=== PATIENT | male | born 1955 | race Caucasian/White ===

== ENCOUNTER 2020-02-20 10:01 | Emergency (ER) | payer BC ==
[~2020-02-20] VITALS: Ht 185.4 cm; Wt 122.0 kg
--- NOTE | 2020-02-20 12:53 | NUR ---
PT MOVED TO ROOM 33 POST X RAY READ FOR IV AND IV ABX. PT PLACED ON O2 AND NIBP MONITORING AND TECH AT BEDSIDE TO START IV.
[2020-02-20] MEDS ORDERED: CEFTRIAXONE PMX 1GM/50ML 50 ML IVPB ONE (13:00)
[2020-02-20] MEDS ORDERED: AZITHROMYCIN 500 MG in SODIUM CHLORIDE 0.9% 250 ML IV ONE (13:00)
[2020-02-20] MEDS ORDERED: SODIUM CHLORIDE FLUSH 10ML SYR IVF ONE (13:00)
[2020-02-20] MEDS ORDERED: CEFTRIAXONE PMX 1GM/50ML 50 ML ONE (13:16)
[2020-02-20 13:18] LABS: BASOPHILS % (AUTO) 1 % (0-1); EOSINOPHILS % (AUTO) 1 % (1-7); LYMPHOCYTES % (AUTO) 17 % (22-44); MEAN CORPUSCULAR HEMOGLOBIN 31.3 pg (27.5-34.5); MEAN CORPUSCULAR HGB CONC 34.4 g/dL (33.2-36.2); MEAN PLATELET VOLUME 7.5 fL (7.4-10.4); MONOCYTES % (AUTO) 10 % (2-9); NEUTROPHILS % (AUTO) 72 % (42-75); PLATELET COUNT 222 x10^3/uL (130-400); RED BLOOD COUNT 4.43 x10^6/uL (4.38-5.82); RED CELL DISTRIBUTION WIDTH 12.9 % (9.4-14.8)
[2020-02-20 13:28] LABS: MD NO
[2020-02-20 13:29] LABS: ALBUMIN 3.6 g/dL (3.4-5.0); ANION GAP 6 mmol/L (5-15); CALCIUM 8.5 mg/dL (8.5-10.1); CHLORIDE 106 mmol/L (98-107); CREATININE 1.29 mg/dL (0.7-1.3)
--- NOTE | 2020-02-20 13:41 | NUR ---
TASK RN: PT WATCHING TV. [place]. VINOD.
--- NOTE | 2020-02-20 14:07 | NUR ---
ABX RUNNING AT THIS TIME. PT UPDATED ON STATUS OF . ALL QUESTIONS ANSWERED.
[2020-02-20 15:04] VITALS: BP 112/71
== END 2020-02-20 15:10 | disposition home or self-care (01) ==
LOC: ED 11:26
DX: U07.1 COVID-19 (principal); J12.9 Viral pneumonia, unspecified
CPT/HCPCS: 36415; 71046; 80048; 82040; 83605; 85025; 87040; 96365; 96366; 96367; 99284; J0456; J0696; J7050

== ENCOUNTER 2020-02-22 11:24 | Inpatient (IN) | payer BC ==
[~2020-02-22] VITALS: Ht 185.4 cm; Wt 125.0 kg
--- NOTE | 2020-02-22 11:55 | NUR ---
PT PRESENTS TO ED WITH C/O INCREASED COUGH, SOB AND FATIGUE. PT DENIES CP. PT STATES TOTAL SYMPTOM DURATION IS NOW 15 DAYS, PT IS KNOWN COVID POSITIVE. PT A&O, RESPS EVEN AND UNLABORED, ABLE TO SPEAK IN FULL SENTENCES WITHOUT DIFFICULTY. ALL MONITORS IN PLACE, PT IS SINUS TACH RATE 90-100'S WITH NO ECTOPY NOTED. CALL LIGHT IN REACH. AWAITING ORDERS AT THIS TIME.
--- NOTE | 2020-02-22 11:58 | NUR ---
PT STATES HE TOOK TYLENOL JUST PRIOR TO ED ARRIVAL. ERICH VICTOR.
[2020-02-22] MEDS ORDERED: AZITHROMYCIN 500 MG in SODIUM CHLORIDE 0.9% 250 ML IV ONE (13:00)
[2020-02-22] MEDS ORDERED: CEFTRIAXONE PMX 1GM/50ML 50 ML IVPB ONE (13:00)
--- NOTE | 2020-02-22 13:00 | NUR ---
PIV placed by task BANDAR Osman pt tolerated well. awaiting labs/cxr results and dispo.
[2020-02-22 13:34] LABS: ALBUMIN 3.2 g/dL (3.4-5.0); ANION GAP 7 mmol/L (5-15); CALCIUM 8.3 mg/dL (8.5-10.1); CHLORIDE 104 mmol/L (98-107)
[2020-02-22 13:38] LABS: ALANINE AMINOTRANSFERASE 31 U/L (12-78); ALKALINE PHOSPHATASE 37 U/L (45-117); BILIRUBIN,TOTAL 0.7 mg/dL (0.2-1.0); CREATININE 1.28 mg/dL (0.7-1.3); TOTAL PROTEIN 7.5 g/dL (6.4-8.2)
--- NOTE | 2020-02-22 13:41 | NUR ---
this RN notified DESIREE Quispe pt is meeting several sirs criteria including fever, tachycardia, and tachypnea. EDPA to order blood cx x 2 and lactic acid sepsis. this RN holding IV abx until blood cx drawn x 2.
[2020-02-22] MEDS ORDERED: OMEP-110 PO (13:47)
[2020-02-22] MEDS ORDERED: SUPER B COMPLEX PO (13:47)
[2020-02-22] MEDS ORDERED: SERT50TA28 PO (13:47)
[2020-02-22] MEDS ORDERED: LEVO150T5 PO (13:47)
[2020-02-22] MEDS ORDERED: FAMO40TA61 PO (13:47)
[2020-02-22] MEDS ORDERED: CHOL10003 PO (13:47)
[2020-02-22 13:58] LABS: BASOPHILS % (AUTO) 0 % (0-1); EOSINOPHILS % (AUTO) 1 % (1-7); LYMPHOCYTES % (AUTO) 8 % (22-44); MEAN CORPUSCULAR HEMOGLOBIN 30.7 pg (27.5-34.5); MEAN CORPUSCULAR HGB CONC 33.8 g/dL (33.2-36.2); MEAN PLATELET VOLUME 7.6 fL (7.4-10.4); MONOCYTES % (AUTO) 9 % (2-9); NEUTROPHILS % (AUTO) 82 % (42-75); PLATELET COUNT 275 x10^3/uL (130-400); RED BLOOD COUNT 4.23 x10^6/uL (4.38-5.82); RED CELL DISTRIBUTION WIDTH 12.9 % (9.4-14.8)
--- NOTE | 2020-02-22 14:00 | NUR ---
LAB NOTIFIED OF ORDER FOR BLOOD CX X 2.
[2020-02-22 14:01] LABS: MD NO
[2020-02-22] MEDS ORDERED: CEFTRIAXONE PMX 1GM/50ML 50 ML ONE (14:47)
[2020-02-22] MEDS ORDERED: ONDANSETRON 2MG/ML, 2ML IVPush PRN (15:00)
[2020-02-22] MEDS ORDERED: ACETAMINOPHEN 325 MG TABLET PO PRN (15:00)
[2020-02-22] MEDS ORDERED: ONDANSETRON ODT 4 MG PO PRN (15:00)
[2020-02-22] MEDS ORDERED: ENOXAPARIN 40 MG/0.4 ML SQ SCH (15:00)
[2020-02-22 15:26] LABS: C-REACTIVE PROTEIN, QUANT 15.9 mg/dL (0.02-0.49)
[2020-02-22] MEDS ORDERED: DEXAMETHASONE 4 MG/ML, 1ML ONE (15:38)
[2020-02-22] MEDS ORDERED: ENOXAPARIN 40 MG/0.4 ML ONE (15:38)
[2020-02-22] MEDS ORDERED: DEXAMETHASONE 4 MG/ML, 1ML IVPush ONE (15:39)
--- NOTE | 2020-02-22 15:45 | NUR ---
PT EDUCATED REGARDING POC, LOVENOX FOR VTE PROH, ROCEPHIN/ZITHROMAX FOR PNEUMONIA TX, DECADRON FOR COVID TX. PT AGREEABLE TO ALL. ZITHROMAX INFUSING AT THIS TIME. PT DENIES RECENT BLOODY STOOLS/EMESIS, DENIES RECENT FALL/TRAUMA. PT IS A&O, RESPS EVEN AND UNLABORED. PT ON ROOM AIR AT THIS TIME, SATTING 93%. PT STATES "THE DOCTOR TOOK MY OXYGEN OFF". PT ABLE TO SPEAK IN FULL SENTENCES WITHOUT DIFFICULTY, NO DYSPNEA NOTED. ALL MONITORS IN PLACE. NSR ON MEDICAL RECEPTION WITH NO ECTOPY. CALL LIGHT IN REACH. PT VOIDED 300ML CONCENTRATED URINE IN URINAL WHICH WAS EMPTIED. PT HAS NO COMPLAINT AT THIS TIME.
[2020-02-22] MEDS ORDERED: LEVO150T61 PO (15:51)
--- NOTE | 2020-02-22 16:30 | NUR ---
REPORT GIVEN TO BANDAR HEATH WHO IS ASSUMING CARE.
--- NOTE | 2020-02-22 16:30 | NUR ---
PT PROVIDED WITH DINNER MEAL TRAY. SYNTRHOID DOSE CONFIRMED WITH PT. MD LORD CALLED TO NOTIFY OF PT'S HOME MED SYNTHROID THAT WAS CLARIFIED. NO ORDERS RECEIVED.
--- NOTE | 2020-02-22 17:27 | NUR ---
IV INFUSION CONTINUES TO RUN. PT PLACED ON HOSPITAL BED AT THIS TIME. PT RESTING COMFORTABLY NO WANTS OR NEEDS EXPRESSED AT THIS TIME.
[2020-02-22] MEDS ORDERED: NEOSPORIN OINT. PKT 1 PACKET ONE (19:28)
[2020-02-22 20:22] VITALS: BP 142/80
[2020-02-22] MEDS ORDERED: AZIT250T89 PO (22:42)
[2020-02-23 01:29] VITALS: BP 108/69
[2020-02-23 05:47] LABS: BASOPHILS % (AUTO) 0 % (0-1); EOSINOPHILS % (AUTO) 0 % (1-7); LYMPHOCYTES % (AUTO) 19 % (22-44); MEAN CORPUSCULAR HEMOGLOBIN 31.5 pg (27.5-34.5); MEAN CORPUSCULAR HGB CONC 34.5 g/dL (33.2-36.2); MEAN PLATELET VOLUME 7.6 fL (7.4-10.4); MONOCYTES % (AUTO) 12 % (2-9); NEUTROPHILS % (AUTO) 69 % (42-75); PLATELET COUNT 300 x10^3/uL (130-400); RED BLOOD COUNT 4.03 x10^6/uL (4.38-5.82); RED CELL DISTRIBUTION WIDTH 12.5 % (9.4-14.8)
[2020-02-23 05:57] LABS: ALBUMIN 2.9 g/dL (3.4-5.0); ANION GAP 5 mmol/L (5-15); CALCIUM 8.6 mg/dL (8.5-10.1); CHLORIDE 107 mmol/L (98-107)
[2020-02-23 06:05] LABS: MD NO
[2020-02-23 06:06] LABS: ALANINE AMINOTRANSFERASE 31 U/L (12-78); ALKALINE PHOSPHATASE 35 U/L (45-117); BILIRUBIN,TOTAL 0.5 mg/dL (0.2-1.0); TOTAL PROTEIN 7.3 g/dL (6.4-8.2)
[2020-02-23 07:35] VITALS: BP 123/74
[2020-02-23] MEDS ORDERED: AZITHROMYCIN 250 MG TABLET PO SCH (09:00)
[2020-02-23] MEDS ORDERED: ZINC SULFATE 220 MG CAPSULE PO SCH (09:00)
[2020-02-23] MEDS ORDERED: THIAMINE 100MG TABLET PO SCH (09:00)
[2020-02-23] MEDS ORDERED: DEXAMETHASONE 4 MG/ML, 1ML IVPush SCH (09:00)
[2020-02-23] MEDS ORDERED: CHOLECALCIFEROL 5,000u TAB PO SCH (09:00)
[2020-02-23] MEDS ORDERED: CEFTRIAXONE PMX 2GM/50ML 50 ML IVPB SCH (12:00)
[2020-02-23] MEDS ORDERED: THIA100T67 PO (12:27)
[2020-02-23] MEDS ORDERED: CEFD300C37 PO (12:27)
[2020-02-23] MEDS ORDERED: CHOL500045 PO (12:27)
[2020-02-23] MEDS ORDERED: ZINC220C7 PO (12:27)
[2020-02-23 13:26] VITALS: BP 142/79
== END 2020-02-23 14:44 | disposition home or self-care (01) | DRG 177 ==
LOC: ED 11:47 → EDIP 12:57 → 3N 19:49
PROVIDERS: ADMIT Family Medicine; ATTEND Family Medicine
DX: U07.1 COVID-19 (principal); J12.89 Other viral pneumonia; J96.01 Acute respiratory failure with hypoxia; R65.10 Systemic inflammatory response syndrome (SIRS) of non-infectious origin without acute organ dysfunction; E03.9 Hypothyroidism, unspecified; G47.33 Obstructive sleep apnea (adult) (pediatric); K21.9 Gastro-esophageal reflux disease without esophagitis; E66.9 Obesity, unspecified; F32.9 Major depressive disorder, single episode, unspecified; Z88.0 Allergy status to penicillin; Z79.899 Other long term (current) drug therapy; Z79.01 Long term (current) use of anticoagulants
CPT/HCPCS: 36415; 71045; 80053; 83605; 83615; 83735; 84100; 84145; 85025; 85379; 86140; 87040; 93005; G0378; J0456; J0696; J1100; J1650; J7050